=== PATIENT | female | born 1960 | race Caucasian/White ===

== ENCOUNTER 2016-08-24 07:27 | Emergency (ER) | payer OTHER ==
[2016-08-24 07:37] VITALS: BP 136/69; PULSE 65; RESP 18; TEMP 97
--- NOTE | 2016-08-24 07:55 | ED ---
Lower Extremity Injury HPI - General Chief Complaint: Extremity Injury, Lower Stated Complaint: Fall-Knee Pain Time Seen by Provider: 08/24/16 07:40 Source: patient, RN notes reviewed Mode of arrival: ambulatory Limitations: no limitations - History of Present Illness Initial Comments: This is a 56-year-old female who states he tripped over a mat at work yesterday and landed on concrete floor with her left knee she complains of some distal left knee pain anteriorly. No major lateral pain she is able walk on it does have some pain she states the pain is about 4/10 in severity no other injuries reported no head neck back injury no other extremity injury. She denies any prior injury to her left knee. MD Complaint: knee injury - Related Data Home Medications Medication Instructions Recorded Confirmed No Known Home Medications [No 08/24/16 08/24/16 Known Home Medications] Previous Rx's Medication Instructions Recorded Ibuprofen [Motrin] 800 mg PO Q6HR PRN #20 tab 08/24/16 Allergies Allergy/AdvReac Type Severity Reaction Status Date / Time No Known Allergies Allergy Verified 08/24/16 07:32 Review of Systems ROS Statement: Those systems with pertinent positive or pertinent negative responses have been documented in the HPI. ROS Other: All systems not noted in ROS Statement are negative. Past Medical History Past Medical History: No Reported History History of Any Multi-Drug Resistant Organisms: None Reported Past Surgical History: Section Past Psychological History: No Psychological Hx Reported Smoking Status: Never smoker Past Alcohol Use History: None Reported Past Drug Use History: None Reported General Exam - General Exam Comments Initial Comments: This is a well-developed well-nourished awake alert oriented 3 female Limitations: no limitations General appearance: alert, in no apparent distress Head exam: Present: atraumatic, normocephalic, normal inspection Eye exam: Present: normal appearance Neck exam: Present: normal inspection. Absent: tenderness, meningismus, lymphadenopathy Respiratory exam: Absent: chest wall tenderness Cardiovascular Exam: Present: regular rate External exam: Present: swelling Extremities exam: Present: full ROM, tenderness, normal capillary refill. Absent: pedal edema (Tenderness palpation over the distal left patella no medial or lateral tenderness no step-off or crepitation no obvious wound a small point of erythema seen to the same area no evidence of any abrasion however no overt tenderness on varus or valgus stress.) Back exam: Present: normal inspection, full ROM. Absent: tenderness Neurological exam: Present: alert, oriented X3, CN II-XII intact Psychiatric exam: Present: normal affect, normal mood Skin exam: Present: warm, dry, intact Course Vital Signs 08/24/16 07:32 Temperature 97 F L Pulse Rate 65 Respiratory 18 Rate Blood Pressure 136/69 O2 Sat by Pulse 100 Oximetry Medical Decision Making - Medical Decision Making I did discuss findings with the patient and her patient be discharged she'll be placed on ice for the next 24-48 hours elevation as needed and anti- inflammatories - Radiology Data Radiology results: report reviewed (I did review the imaging and report is pending at this time no obvious acute findings.), image reviewed Disposition Clinical Impression: Contusion of left knee, Fall Disposition: HOME SELF-CARE Condition: Good Instructions: Knee Pain (ED), Contusion in Adults (ED) Prescriptions: Ibuprofen [Motrin] 800 mg PO Q6HR PRN #20 tab PRN Reason: Pain Referrals: Nonstaff,Physician [Primary Care Provider] - 1-2 days
--- NOTE | 2016-08-24 08:32 | XR ---
EXAMINATION TYPE: XR knee 4V LT DATE OF EXAM: 08/24/2016 8:10 AM COMPARISON: NONE HISTORY: 56-year-old female with fall yesterday and pain TECHNIQUE: 4 views FINDINGS: There is suggestion of a small knee joint effusion. Some anterior soft tissue swelling is also demons trated. The patella remains appropriately situated along the trochlear groove. No acute fracture, sub luxation, or dislocation is seen. IMPRESSION: 1. No acute osseous abnormality seen. 2. Some mild anterior soft tissue swelling. 3. Nonspecific small knee joint effusion may be reactive. If concern for internal derangement, MRI ca n further evaluate.
== END 2016-08-24 08:30 | disposition home or self-care (01) ==
LOC: EC 07:27
DX: S80.02XA Contusion of left knee, initial encounter (principal); W01.0XXA Fall on same level from slipping, tripping and stumbling without subsequent striking against object, initial encounter; Y93.89 Activity, other specified; Y92.69 Other specified industrial and construction area as the place of occurrence of the external cause
CPT/HCPCS: 99283

== ENCOUNTER 2017-11-22 16:58 | Emergency (ER) | payer OTHER ==
[2017-11-22 17:19] VITALS: BP 118/78; PULSE 85; RESP 18; TEMP 98.3
--- NOTE | 2017-11-22 18:03 | ED ---
ENT HPI - General Chief complaint: ENT Stated complaint: Ear pain Time Seen by Provider: 11/22/17 17:33 Source: patient, RN notes reviewed Mode of arrival: ambulatory Limitations: no limitations - History of Present Illness Initial comments: This is a 57-year-old female who presents to the emergency department with chief complaint of left ear pain. Patient states that [place] with her [place] this past Tuesday. She states that she may have gotten water in it and has been experiencing pain ever since. She reports ear fullness. Denies any hearing changes. Denies fevers or chills, cough or runny nose, abdominal pain, nausea or vomiting. - Related Data Previous Rx's Medication Instructions Recorded Ibuprofen [Motrin] 800 mg PO Q6HR PRN #20 tab 08/24/16 Amoxicillin 875 mg PO Q8HR #30 tablet 11/22/17 Allergies Allergy/AdvReac Type Severity Reaction Status Date / Time No Known Allergies Allergy Verified 11/22/17 17:19 Review of Systems ROS Statement: Those systems with pertinent positive or pertinent negative responses have been documented in the HPI. ROS Other: All systems not noted in ROS Statement are negative. Past Medical History Past Medical History: No Reported History History of Any Multi-Drug Resistant Organisms: None Reported Past Surgical History: Section Past Psychological History: No Psychological Hx Reported Smoking Status: Never smoker Past Alcohol Use History: None Reported Past Drug Use History: None Reported General Exam - General Exam Comments Initial Comments: General: Awake and alert, well-developed; in no apparent distress. HEENT: Head atraumatic, normocephalic. Pupils are equal, round and reactive to light. Extraocular movements intact. Oropharynx moist without erythema or exudate. Cerumen impaction left ear. After irrigation, TM is visualized. It is erythematous and bulging. Mild erythema and edema of the canal with no exudates-likely due to cerumen impaction and irrigation. No tragal or pinna retraction tenderness. Neck: Supple. Normal ROM. Cardiovascular: Regular rate and rhythm. No murmurs, rubs or gallops. Chest symmetrical. Respiratory: Lungs clear to auscultation bilaterally. No wheezes, rales or rhonchi. Normal respiratory effort with no use of accessory muscles. Musculoskeletal: Normal ROM, no tenderness bilateral upper and lower extremities. Ambulating normally. Skin: [place], warm and dry without rashes or lesions. Neurological: Alert and oriented x3. CN II-XII grossly intact. Speech is fluent and answers are appropriate. No focal neuro deficits. Psychiatric: Normal mood and affect. No overt signs of depression or anxiety noted. Limitations: no limitations Course Vital Signs 11/22/17 17:17 Temperature 98.3 F Pulse Rate 85 Respiratory 18 Rate Blood Pressure 118/78 O2 Sat by Pulse 98 Oximetry Medical Decision Making - Medical Decision Making This is a 57-year-old female who presents to the emergency department with chief complaint of left ear pain. Patient does have a cerumen impaction. Ear was irrigated by the nurse and a large amount of cerumen was irrigated and removed from the ear. On further examination, left TM is bulging and erythematous. Patient will be started on an oral antibiotic. The canal is slightly edematous and erythematous without exudates. Likely due to cerumen impaction and subsequent irrigation. Patient's vital signs are stable and she is in no acute distress. She will be discharged home at this time. She is in agreement with plan and voices understanding. All questions were answered. Disposition Clinical Impression: Otitis media, Cerumen impaction Disposition: HOME SELF-CARE Condition: Good Instructions: Otitis Media (ED), Cerumen Impaction (ED) Additional Instructions: Please take medications as prescribed. Please follow up with primary care provider within 1-2 days. Return to emergency department if symptoms should worsen or any concerns arise. Prescriptions: Amoxicillin 875 mg PO Q8HR #30 tablet Is patient prescribed a controlled substance at d/c from ED?: No Referrals: Beronica Carroll MD [Primary Care Provider] - 1-2 days Time of Disposition: 18:30
== END 2017-11-22 18:37 | disposition home or self-care (01) ==
LOC: EC 16:58
DX: H66.92 Otitis media, unspecified, left ear (principal); H61.22 Impacted cerumen, left ear
CPT/HCPCS: 69209; 99282

== ENCOUNTER 2017-11-25 16:07 | Emergency (ER) | payer OTHER ==
[2017-11-25 16:24] VITALS: BP 119/74; PULSE 77; RESP 18; TEMP 98.1
--- NOTE | 2017-11-25 16:45 | ED ---
ENT HPI - General Chief complaint: ENT Stated complaint: ear problems-revisit Time Seen by Provider: 11/25/17 16:31 Source: patient Mode of arrival: ambulatory Limitations: no limitations - History of Present Illness Initial comments: 57yo with cc of my left ear is still draining x 3 days. Pt was seen here on 11/22 where cerumen was removed, pt was given amoxicillin for erythematous, bulging TM most likely acute otitis media. Pt states that she has had some light yellow drainage since then. She came to the ER on Tuesday and was not seen but was told by a nurse that draining is common after irrigation and to place cotton ball. Pt did not want to be seen at this time. Pt returned today because it is still draining. Denies ear pain, puritius, ear fullness, fever, chills, hearing loss, or pain of the posterior ear. Pt just wanted to make sure the drainage was ok. Remainder ROS (-). - Related Data Previous Rx's Medication Instructions Recorded Ibuprofen [Motrin] 800 mg PO Q6HR PRN #20 tab 08/24/16 Amoxicillin 875 mg PO Q8HR #30 tablet 11/22/17 Allergies Allergy/AdvReac Type Severity Reaction Status Date / Time No Known Allergies Allergy Verified 11/25/17 16:24 Review of Systems ROS Statement: Those systems with pertinent positive or pertinent negative responses have been documented in the HPI. ROS Other: All systems not noted in ROS Statement are negative. Constitutional: Denies: fever, chills Eyes: Denies: eye pain, vision change ENT: Denies: ear pain, hearing loss Respiratory: Denies: cough, dyspnea Gastrointestinal: Denies: abdominal pain, nausea, vomiting Genitourinary: Denies: urgency, dysuria Musculoskeletal: Denies: back pain Skin: Denies: rash, lesions Neurological: Denies: headache, numbness, paresthesias, confusion, abnormal gait Past Medical History Past Medical History: No Reported History History of Any Multi-Drug Resistant Organisms: None Reported Past Surgical History: Section Past Psychological History: No Psychological Hx Reported Smoking Status: Never smoker Past Alcohol Use History: None Reported Past Drug Use History: None Reported General Exam - General Exam Comments Initial Comments: General: The patient is awake and alert, in no distress, and does not appear acutely ill. Eye: Pupils are equal, round and reactive to light, extra-ocular movements are intact. No nystagmus. There is normal conjunctiva bilaterally. No signs of icterus. Ears, nose, mouth and throat: There are moist mucous membranes and no oral lesions. No tenderness to palpation of tragus or pulling of auricle b/l. Erythematous left TM, with small performation with effusion. EAC non erythematous or edematous. No tenderness over the mastoid. No evidence of cholesteatoma. Hearing equal b/l to finger rub. Neck: The neck is supple, there is no tenderness or JVD. No anterior cervical lymphadenopathy. Cardiovascular: There is a regular rate and rhythm. No murmur, rub or gallop is appreciated. Respiratory: Lungs are clear to auscultation, respirations are non-labored, breath sounds are equal. No wheezes, stridor, rales, or rhonchi. Gastrointestinal: [Soft, non-distended, non-tender abdomen without masses or organomegaly noted. There is no rebound or guarding present. No CVA tenderness. Bowel sounds are unremarkable.] Musculoskeletal: Normal ROM, no tenderness. Strength 5/5. Sensation intact. Pulses equal bilaterally 2+. Neurological: A&O x 3. CN II-XII intact, There are no obvious motor or sensory deficits. Coordination appears grossly intact. Speech is normal. Skin: Skin is warm and dry and no rashes or lesions are noted. Psychiatric: Cooperative, appropriate mood & affect, normal judgment. Limitations: no limitations Course Vital Signs 11/25/17 16:21 Temperature 98.1 F Pulse Rate 77 Respiratory 18 Rate Blood Pressure 119/74 O2 Sat by Pulse 99 Oximetry Medical Decision Making - Medical Decision Making Pt presenting for cc of continued left ear drainage. Pt on amoxicillin currently prescribed 11/22. Examination is significant for erythematous TM with perforation and effusion. No evidence of mastoiditis or cholesteatoma at this time. Hearing intact. Pt afebrile and denies ear pain. Case discussed with Dr. Keita in detail at this time we feel pt is stable for d/c and that the drainage she is experiencing is due to OM with effusion. Pt was instructed to avoid bathing, swimming or submerging ear in water, continue amoxicillin as directed, and follow-up with PCP in 1-2 days. She stated she understood plan and denied questions. Pt discharged in stable condition. Disposition Clinical Impression: Otitis media Disposition: HOME SELF-CARE Condition: Good Instructions: Ruptured Eardrum (ED), Otitis Media (ED) Additional Instructions: Please use continue previously prescribed medication as discussed. Please follow-up with family doctor in the next 2 days. Please return to emergency room if the symptoms increase or worsen or for any other concerns. AVOID WATER, SWIMMING, or SUBMERGING EAR UNDERWATER Is patient prescribed a controlled substance at d/c from ED?: No Referrals: None,Stated [Primary Care Provider] - 1-2 days Time of Disposition: 17:04
== END 2017-11-25 17:13 | disposition home or self-care (01) ==
LOC: EC 16:07
DX: H66.92 Otitis media, unspecified, left ear (principal)
CPT/HCPCS: 99282

== ENCOUNTER 2018-02-20 22:04 | Emergency (ER) | payer OTHER ==
[2018-02-20] MEDS ORDERED: SODIUM CHLORIDE 0.9% 500 ML 500 ML IV STA (22:55)
[2018-02-20] MEDS ORDERED: MORPHINE SULFATE 2 MG/ML SYRINGE IVP STA (22:55)
[2018-02-20] MEDS ORDERED: ONDANSETRON 4 MG/2 ML VIAL IVP STA (22:55)
[2018-02-20 23:31] LABS: Basophils % (A) 0 %; Eosinophils # (A) 0.1 k/uL (0-0.7); Eosinophils % (A) 1 %; HCT 43.7 % (34.0-46.0); HGB 14.4 gm/dL (11.4-16.0); Lymphocytes # (A) 1.6 k/uL (1.0-4.8); Lymphocytes % (A) 18 %; MCH 28.1 pg (25.0-35.0); MCHC 32.9 g/dL (31.0-37.0); MCV 85.4 fL (80.0-100.0); Monocytes # (A) 0.4 k/uL (0-1.0); Monocytes % (A) 4 %; Neutrophils # (A) 6.5 k/uL (1.3-7.7); Neutrophils % (A) 74 %; Platelet Count 212 k/uL (150-450); RBC 5.12 m/uL (3.80-5.40); RDW 14.1 % (11.5-15.5); WBC 8.8 k/uL (3.8-10.6)
[2018-02-20 23:40] LABS: Albumin 2.7 g/dL (3.5-5.0); Calcium 8.7 mg/dL (8.4-10.2); Total Bilirubin 0.3 mg/dL (0.2-1.3)
[2018-02-20 23:41] LABS: Appearance,Urine Cloudy (Clear); Bacteria,Urine Rare /hpf; Bilirubin,Urine Negative (Negative); Blood,Urine Negative (Negative); Color,Urine Yellow; Glucose,Urine (UA) Negative (Negative); Hyaline Casts,Urine 4 /lpf (0-2); Ketones,Urine Negative (Negative); Leukocyte Esterase,Urine Large (Negative); Mucus,Urine Moderate /hpf; Nitrite,Urine Negative (Negative); PH, Urine 5.5 (5.0-8.0); Protein,Urine Trace (Negative); RBC,Urine 21 /hpf (0-5); Specific Gravity,Urine 1.025 (1.001-1.035); Squamous Epithelial Cell,Urine 10 /hpf (0-4); WBC,Urine 55 /hpf (0-5)
--- NOTE | 2018-02-20 23:42 | XR ---
EXAMINATION TYPE: XR KUB DATE OF EXAM: 02/20/2018 COMPARISON: NONE HISTORY: Abdominal pain TECHNIQUE: 2 views upright FINDINGS: Bowel gas pattern is normal. There is no sign of intestinal obstruction or pneumoperitoneum . Fecal pattern is normal. Lung bases show small pleural fluid on the right side. There are no pathol ogic calcifications over the kidneys. IMPRESSION: Small right pleural effusion. Nonacute abdomen.
--- NOTE | 2018-02-20 23:44 | XR ---
EXAMINATION TYPE: XR chest 2V DATE OF EXAM: 02/20/2018 COMPARISON: 09/04/2010 HISTORY: Abdominal pain TECHNIQUE: Frontal and lateral views of the chest are obtained. FINDINGS: There is some blunting of right costophrenic angle. Left lung is clear. Heart and mediasti num are normal. There is no heart failure. Bony thorax is intact. IMPRESSION: New pleural fluid and pleural reaction at the lateral right lung base compared to old exam. Normal he art.
[2018-02-20 23:57] LABS: Creatine Kinase 113 U/L (30-135)
--- NOTE | 2018-02-21 00:05 | ED ---
General Adult HPI - General Chief complaint: Abdominal Pain Stated complaint: abdominal pain Time Seen by Provider: 02/20/18 22:46 Source: patient Mode of arrival: ambulatory Limitations: no limitations - History of Present Illness Initial comments: 57-year-old female patient presents to the emergency department today for evaluation of pain to the left upper quadrant and left lower chest. Patient states that the pain is a sharp stabbing pain and increases whenever she takes a deep breath. Patient states that the pain started this morning and has been present with each breath. She denies any cough, hemoptysis, or shortness of breath. She denies any fevers or chills. She denies smoking, recent travel, pain in her calves, or redness to her calves. She states that she has been nauseated and did vomit one time. She denies any back pain, constipation, diarrhea, hematuria, dysuria, urinary frequency, urinary urgency. Patient denies any recent rash, shortness breath, diarrhea, constipation, numbness, tingling, dizziness, weakness, headache, visual changes, or any other complaints. - Related Data Previous Rx's Medication Instructions Recorded Ibuprofen [Motrin] 600 mg PO Q8HR PRN #30 tab 02/21/18 Nitrofurantoin Monohyd/M-Cryst 100 mg PO Q12HR #14 cap 02/21/18 [Macrobid] Allergies Allergy/AdvReac Type Severity Reaction Status Date / Time No Known Allergies Allergy Verified 02/20/18 23:16 Review of Systems ROS Statement: Those systems with pertinent positive or pertinent negative responses have been documented in the HPI. ROS Other: All systems not noted in ROS Statement are negative. Past Medical History Past Medical History: No Reported History History of Any Multi-Drug Resistant Organisms: None Reported Past Surgical History: Section Past Psychological History: No Psychological Hx Reported Smoking Status: Never smoker Past Alcohol Use History: None Reported Past Drug Use History: None Reported General Exam Limitations: no limitations General appearance: alert, in no apparent distress, other (This is a well- developed, well-nourished adult female patient in no acute distress. Vital signs upon presentation are temperature 97.6F, pulse 96, respirations 18, blood pressure 124/88, pulse ox 93% on room air.) ENT exam: Present: normal exam, normal oropharynx, mucous membranes moist Respiratory exam: Present: normal lung sounds bilaterally. Absent: respiratory distress, wheezes, rales, rhonchi, stridor Cardiovascular Exam: Present: regular rate, normal rhythm, normal heart sounds. Absent: systolic murmur, diastolic murmur, rubs, gallop, clicks GI/Abdominal exam: Present: soft, tenderness (Left upper quadrant tenderness), normal bowel sounds. Absent: distended, guarding, rebound, rigid Neurological exam: Present: alert, oriented X3, CN II-XII intact Psychiatric exam: Present: normal affect, normal mood Skin exam: Present: warm, dry, intact, normal color. Absent: rash Course Vital Signs 02/20/18 02/21/18 02/21/18 22:16 01:03 02:51 Temperature 97.6 F 98.3 F Pulse Rate 96 63 77 Respiratory 18 17 16 Rate Blood Pressure 124/88 121/74 121/83 O2 Sat by Pulse 93 L 96 96 Oximetry EKG Findings - EKG Comments: EKG Findings:: EKG obtained at 2313 shows normal sinus rhythm with a ventricular rate of 82, WI interval 174, QRS duration 72, QT 392, QTc 457. No evidence of ST elevation or depression. Medical Decision Making - Medical Decision Making 57-year-old female patient presents to the emergency department today for evaluation of left upper quadrant/left lower chest pain. Patient describes the pain is sharp stabbing pain especially when taking a deep breath. Physical examination was unremarkable, patient had soft nontender abdomen. Lungs are clear to auscultation with good air movement. Vital signs initially revealed a pulse ox of 93% on room air. Labs reviewed and are unremarkable. Troponin was negative. Chest x-ray showed small pleural effusion on the right side. D- dimer was negative however with the patient's symptoms and low oxygen level we did perform CT angio of the chest which showed evidence of pleural thickening at the left upper posterior lobe. No evidence of PE. O2 Saturation did improve to 96% on room air while in the department. I did discuss findings and results with the patient. Symptoms are consistent with pleurisy. She'll be given a course of anti-inflammatory medication. She is informed of all findings on computed tomography scan instructed to follow-up with her primary care physician for further evaluation of enlarged lymph nodes and pleural thickening. She is instructed to follow-up with her primary care physician for recheck in one to two days. Return parameters were discussed in detail. She verbalizes understanding and agrees with this plan - Lab Data Result diagrams: 02/20/18 23:10 02/20/18 23:10 Lab Results 02/20/18 02/20/18 02/20/18 Range/Units 22:50 23:10 23:10 WBC (3.8-10.6) k/uL RBC (3.80-5.40) m/uL Hgb (11.4-16.0) gm/dL Hct (34.0-46.0) % MCV (80.0-100.0) fL MCH (25.0-35.0) pg MCHC (31.0-37.0) g/dL RDW (11.5-15.5) % Plt Count (150-450) k/uL Neutrophils % % Lymphocytes % % Monocytes % % Eosinophils % % Basophils % % Neutrophils # (1.3-7.7) k/uL Lymphocytes # (1.0-4.8) k/uL Monocytes # (0-1.0) k/uL Eosinophils # (0-0.7) k/uL Basophils # (0-0.2) k/uL PT (9.0-12.0) sec INR (<1.2) APTT (22.0-30.0) sec D-Dimer (<0.60) mg/L FEU Sodium 135 L (137-145) mmol/L Potassium 4.0 (3.5-5.1) mmol/L Chloride 107 (98-107) mmol/L Carbon Dioxide 21 L (22-30) mmol/L Anion Gap 7 mmol/L BUN 15 (7-17) mg/dL Creatinine 0.98 (0.52-1.04) mg/dL Est GFR (CKD-EPI)AfAm 75 (>60 ml/min/1.73 sqM) Est GFR (CKD-EPI)NonAf 65 (>60 ml/min/1.73 sqM) Glucose 109 H (74-99) mg/dL Plasma Lactic Acid [place] (0.7-2.0) mmol/L Calcium 8.7 (8.4-10.2) mg/dL Total Bilirubin 0.3 (0.2-1.3) mg/dL AST 28 (14-36) U/L ALT 31 (9-52) U/L Alkaline Phosphatase 66 (38-126) U/L Total Creatine Kinase 113 (30-135) U/L CK-MB (CK-2) 1.1 (0.0-2.4) ng/mL CK-MB (CK-2) Rel Index 1.0 Troponin I <0.012 (0.000-0.034) ng/mL Total Protein 5.0 L (6.3-8.2) g/dL Albumin 2.7 L (3.5-5.0) g/dL Amylase 67 (30-110) U/L Lipase 151 (23-300) U/L Urine Color Yellow Urine Appearance Cloudy H (Clear) Urine pH 5.5 (5.0-8.0) Ur Specific Thor 1.025 (1.001-1.035) Urine Protein Trace H (Negative) Urine Glucose (UA) Negative (Negative) Urine Ketones Negative (Negative) Urine Blood Negative (Negative) Urine Nitrite Negative (Negative) Urine Bilirubin Negative (Negative) Urine Urobilinogen 2.0 (<2.0) mg/dL Ur Leukocyte Esterase Large H (Negative) Urine RBC 21 H (0-5) /hpf Urine WBC 55 H (0-5) /hpf Ur Squamous Epith Cells 10 H (0-4) /hpf Urine Bacteria Rare H (None) /hpf Hyaline Casts 4 H (0-2) /lpf Urine Mucus Moderate H (None) /hpf 02/20/18 02/20/18 02/20/18 Range/Units 23:10 23:10 23:10 WBC 8.8 (3.8-10.6) k/uL RBC 5.12 (3.80-5.40) m/uL Hgb 14.4 (11.4-16.0) gm/dL Hct 43.7 (34.0-46.0) % MCV 85.4 (80.0-100.0) fL MCH 28.1 (25.0-35.0) pg MCHC 32.9 (31.0-37.0) g/dL RDW 14.1 (11.5-15.5) % Plt Count 212 (150-450) k/uL Neutrophils % 74 % Lymphocytes % 18 % Monocytes % 4 % Eosinophils % 1 % Basophils % 0 % Neutrophils # 6.5 (1.3-7.7) k/uL Lymphocytes # 1.6 (1.0-4.8) k/uL Monocytes # 0.4 (0-1.0) k/uL Eosinophils # 0.1 (0-0.7) k/uL Basophils # 0.0 (0-0.2) k/uL PT 9.9 (9.0-12.0) sec INR 1.0 (<1.2) APTT 21.3 L (22.0-30.0) sec D-Dimer 0.54 (<0.60) mg/L FEU Sodium (137-145) mmol/L Potassium (3.5-5.1) mmol/L Chloride (98-107) mmol/L Carbon Dioxide (22-30) mmol/L Anion Gap mmol/L BUN (7-17) mg/dL Creatinine (0.52-1.04) mg/dL Est GFR (CKD-EPI)AfAm (>60 ml/min/1.73 sqM) Est GFR (CKD-EPI)NonAf (>60 ml/min/1.73 sqM) Glucose (74-99) mg/dL Plasma Lactic Acid [place] 0.7 (0.7-2.0) mmol/L Calcium (8.4-10.2) mg/dL Total Bilirubin (0.2-1.3) mg/dL AST (14-36) U/L ALT (9-52) U/L Alkaline Phosphatase (38-126) U/L Total Creatine Kinase (30-135) U/L CK-MB (CK-2) (0.0-2.4) ng/mL CK-MB (CK-2) Rel Index Troponin I (0.000-0.034) ng/mL Total Protein (6.3-8.2) g/dL Albumin (3.5-5.0) g/dL Amylase (30-110) U/L Lipase (23-300) U/L Urine Color Urine Appearance (Clear) Urine pH (5.0-8.0) Ur Specific Thor (1.001-1.035) Urine Protein (Negative) Urine Glucose (UA) (Negative) Urine Ketones (Negative) Urine Blood (Negative) Urine Nitrite (Negative) Urine Bilirubin (Negative) Urine Urobilinogen (<2.0) mg/dL Ur Leukocyte Esterase (Negative) Urine RBC (0-5) /hpf Urine WBC (0-5) /hpf Ur Squamous Epith Cells (0-4) /hpf Urine Bacteria (None) /hpf Hyaline Casts (0-2) /lpf Urine Mucus (None) /hpf - Radiology Data Radiology results: report reviewed, image reviewed CT chest angiography for PE was obtained. Report was reviewed in its entirety. Impression by Dr. Davidson shows hiatal hernia, no evidence of pulmonary embolism, minimal pleural thickening all left-sided uncertain significance. To operate views of the abdomen were obtained. Bowel gas pattern is normal. There is no sign of intestinal obstruction or pneumoperitoneum. Fecal pattern is normal. Lung bases show small pleural fluid on the right side. There are no pathologic calcifications over the kidneys. Impression by Dr. Davidson shows small right pleural effusion. Nonacute abdomen. Two-view x-ray of the chest is obtained. There is some blunting of the right costophrenic angle. Left lung is clear. Heart and mediastinum are normal. There is no heart failure. Bony thorax is intact. Impression by Dr. Davidson shows no pleural fluid and pleural reaction at the lateral right lung base compared to old exam. Normal heart. Disposition Clinical Impression: Pleurisy, Urinary tract infection Disposition: HOME SELF-CARE Condition: Good Instructions: Pleurisy (ED), Urinary Tract Infection in Women (ED) Additional Instructions: Complete antibiotic prescription in full. Follow up with your primary care physician for further evaluation of lung changes on your Cat Scan. Take medication as directed. Complete antibiotic prescription in full. Return immediately for any new, worsening, or concerning symptoms. Prescriptions: Ibuprofen [Motrin] 600 mg PO Q8HR PRN #30 tab PRN Reason: Pain Nitrofurantoin Monohyd/M-Cryst [Macrobid] 100 mg PO Q12HR #14 cap Is patient prescribed a controlled substance at d/c from ED?: No Referrals: Beronica Carroll MD [Primary Care Provider] - 1-2 days Time of Disposition: 02:34
[2018-02-21 00:09] LABS: Creatine Kinase MB 1.1 ng/mL (0.0-2.4); Troponin I <0.012 ng/mL (0.000-0.034)
[2018-02-21 00:28] LABS: D-Dimer 0.54 mg/L FEU (<0.60); Prothrombin Time 9.9 sec (9.0-12.0)
[2018-02-21 00:39] LABS: Partial Thromboplastin Time 21.3 sec (22.0-30.0)
--- NOTE | 2018-02-21 01:53 | CT ---
EXAMINATION TYPE: CT chest angio for PE DATE OF EXAM: 02/21/2018 COMPARISON: None HISTORY: epigastric pain CT DLP: 203.9 mGycm Automated exposure control for dose reduction was used. CONTRAST: CT Chest for pulmonary embolism performed with with IV Contrast, patient injected with 60 mL of Isovu e 370. FINDINGS: There are 3-D post processed images. There is 1.5 cm area of minimal pleural thickening in the left u pper lobe posteriorly. There is no evidence of a pulmonary mass. There is subsegmental atelectasis at the lung bases. There is small hiatal hernia. There are a few peritracheal and anterior mediastinal lymph nodes measure up to 1 cm. These are nonspecific. Thoracic aorta shows no aneurysm or dissection. There is normal contrast opacification of the pulmona ry arteries. I see no filling defect. There are no hilar masses. Heart size is normal. There is no pe ricardial effusion. There is no pleural effusion. Upper abdominal soft tissues are unremarkable. IMPRESSION: Hiatal hernia. No evidence of pulmonary embolism. Minimal pleural thickening on the left side of unce rtain significance.
[2018-02-21] MEDS ORDERED: KETOROLAC 30 MG/ML 1 ML VIAL IVP STA (02:30)
[2018-02-21 02:53] VITALS: BP 121/83; PULSE 77; RESP 16; TEMP 98.3
== END 2018-02-21 02:47 | disposition home or self-care (01) ==
LOC: EC 22:04
DX: N39.0 Urinary tract infection, site not specified (principal); J90 Pleural effusion, not elsewhere classified
CPT/HCPCS: 99285; 96374; 96375; 36415; 93005; 85379; 80053; 82150; 82550; 82553; 83605; 83690; 84484; 85025; 85610; 85730; 81001; 87086; 71046; 74018; 71275; J1885; J2270; Q9967

== ENCOUNTER 2018-08-11 10:46 | Emergency (ER) | payer OTHER ==
[2018-08-11] MEDS ORDERED: IPRATROPIUM 0.5 MG/2.5 ML NEBU INHALATION STA (11:26)
[2018-08-11] MEDS ORDERED: methylPREDNISolone SOD SUCCI 125 MG/2 ML VIAL IV STA (11:26)
[2018-08-11] MEDS ORDERED: ALBUTEROL NEBULIZED 2.5 MG/3 ML INHALATION STA (11:26)
--- NOTE | 2018-08-11 11:30 | ED ---
General Adult HPI - General Chief complaint: Upper Respiratory Infection Stated complaint: bronchitis Time Seen by Provider: 08/11/18 11:22 Source: patient, RN notes reviewed Mode of arrival: ambulatory Limitations: no limitations - History of Present Illness Initial comments: 58-year-old female presenting with 5 days of cough and mild dyspnea. Patient was seen at an outside hospital, given steroids and albuterol. She states her symptoms have not improved over the past 5 days. Denies fever. Denies URI symptoms. Denies chest pain. No history of CAD, no history DVT or PE. Denies history of COPD. She is a nonsmoker. Cough is wet however patient has been unable to produce significant sputum. - Related Data Home Medications Medication Instructions Recorded Confirmed Albuterol Inhaler [Ventolin Hfa 1 - 2 puff INHALATION RT-Q6H PRN 08/11/18 08/11/18 Inhaler] Previous Rx's Medication Instructions Recorded Azithromycin [Zithromax Z-pack] 0 mg PO DIRECTED #6 tab 08/11/18 methylPREDNISolone Dose Pack 4 mg PO DIRECTED #21 package 08/11/18 [Medrol Dose Pack] Allergies Allergy/AdvReac Type Severity Reaction Status Date / Time No Known Allergies Allergy Verified 08/11/18 11:01 Review of Systems ROS Statement: Those systems with pertinent positive or pertinent negative responses have been documented in the HPI. ROS Other: All systems not noted in ROS Statement are negative. Past Medical History Past Medical History: No Reported History History of Any Multi-Drug Resistant Organisms: None Reported Past Surgical History: Section Past Psychological History: No Psychological Hx Reported Smoking Status: Never smoker Past Alcohol Use History: None Reported Past Drug Use History: None Reported General Exam Limitations: no limitations General appearance: alert, in no apparent distress Head exam: Present: atraumatic, normocephalic Eye exam: Present: normal appearance, PERRL ENT exam: Present: normal exam Neck exam: Present: normal inspection Respiratory exam: Present: wheezes, rhonchi (Bilateral, worse on the right). Absent: respiratory distress Cardiovascular Exam: Present: normal rhythm, tachycardia GI/Abdominal exam: Present: soft. Absent: distended, tenderness Extremities exam: Present: normal inspection, normal capillary refill. Absent: pedal edema, calf tenderness Neurological exam: Present: alert, oriented X3, CN II-XII intact. Absent: motor sensory deficit Psychiatric exam: Present: normal affect, normal mood Skin exam: Present: warm, dry, intact. Absent: cyanosis, diaphoretic Course Vital Signs 08/11/18 08/11/18 08/11/18 10:52 11:36 12:00 Temperature 97.7 F Pulse Rate 109 H 108 H 108 H Respiratory 20 Rate Blood Pressure 129/83 O2 Sat by Pulse 97 Oximetry Medical Decision Making - Medical Decision Making 58-year-old female presenting with cough. Workup in the emergency department reveals mild leukocytosis 10.8, stable hemoglobin, potassium 3.2 which is replaced. Lactic acid 2.2 treated with IV hydration. Troponin and BNP negative influenza negative. Chest x-ray negative for focal pneumonia. Patient is presenting for second visit. She is offered observation for treatment of reactive airway disease and failed outpatient treatment. She declines. She prefers outpatient follow-up. Will be prescribed antibiotics and steroids for bronchitis. - Lab Data Result diagrams: 08/11/18 11:37 08/11/18 11:37 Lab Results 08/11/18 08/11/18 08/11/18 Range/Units 11:37 11:37 11:37 WBC 10.8 H (3.8-10.6) k/uL RBC 5.32 (3.80-5.40) m/uL Hgb 14.8 (11.4-16.0) gm/dL Hct 46.6 H (34.0-46.0) % MCV 87.6 (80.0-100.0) fL MCH 27.8 (25.0-35.0) pg MCHC 31.8 (31.0-37.0) g/dL RDW 15.1 (11.5-15.5) % Plt Count 261 (150-450) k/uL Neutrophils % 71 % Lymphocytes % 21 % Monocytes % 5 % Eosinophils % 1 % Basophils % 1 % Neutrophils # 7.7 (1.3-7.7) k/uL Lymphocytes # 2.3 (1.0-4.8) k/uL Monocytes # 0.5 (0-1.0) k/uL Eosinophils # 0.1 (0-0.7) k/uL Basophils # 0.1 (0-0.2) k/uL PT 9.6 (9.0-12.0) sec INR 0.9 (<1.2) APTT 19.5 L (22.0-30.0) sec Sodium 140 (137-145) mmol/L Potassium 3.2 L (3.5-5.1) mmol/L Chloride 105 (98-107) mmol/L Carbon Dioxide 29 (22-30) mmol/L Anion Gap 6 mmol/L BUN 17 (7-17) mg/dL Creatinine 0.99 (0.52-1.04) mg/dL Est GFR (CKD-EPI)AfAm 73 (>60 ml/min/1.73 sqM) Est GFR (CKD-EPI)NonAf 64 (>60 ml/min/1.73 sqM) Glucose 112 H (74-99) mg/dL Plasma Lactic Acid [place] (0.7-2.0) mmol/L Calcium 9.9 (8.4-10.2) mg/dL Magnesium 2.0 (1.6-2.3) mg/dL Total Bilirubin 0.3 (0.2-1.3) mg/dL AST 22 (14-36) U/L ALT 36 (9-52) U/L Alkaline Phosphatase 80 (38-126) U/L Troponin I (0.000-0.034) ng/mL NT-Pro-B Natriuret Pep pg/mL Total Protein 6.1 L (6.3-8.2) g/dL Albumin 3.7 (3.5-5.0) g/dL Influenza Type A RNA (Not Detectd) Influenza Type B (PCR) (Not Detectd) 08/11/18 08/11/18 08/11/18 Range/Units 11:37 11:37 11:37 WBC (3.8-10.6) k/uL RBC (3.80-5.40) m/uL Hgb (11.4-16.0) gm/dL Hct (34.0-46.0) % MCV (80.0-100.0) fL MCH (25.0-35.0) pg MCHC (31.0-37.0) g/dL RDW (11.5-15.5) % Plt Count (150-450) k/uL Neutrophils % % Lymphocytes % % Monocytes % % Eosinophils % % Basophils % % Neutrophils # (1.3-7.7) k/uL Lymphocytes # (1.0-4.8) k/uL Monocytes # (0-1.0) k/uL Eosinophils # (0-0.7) k/uL Basophils # (0-0.2) k/uL PT (9.0-12.0) sec INR (<1.2) APTT (22.0-30.0) sec Sodium (137-145) mmol/L Potassium (3.5-5.1) mmol/L Chloride (98-107) mmol/L Carbon Dioxide (22-30) mmol/L Anion Gap mmol/L BUN (7-17) mg/dL Creatinine (0.52-1.04) mg/dL Est GFR (CKD-EPI)AfAm (>60 ml/min/1.73 sqM) Est GFR (CKD-EPI)NonAf (>60 ml/min/1.73 sqM) Glucose (74-99) mg/dL Plasma Lactic Acid [place] 2.2 H* (0.7-2.0) mmol/L Calcium (8.4-10.2) mg/dL Magnesium (1.6-2.3) mg/dL Total Bilirubin (0.2-1.3) mg/dL AST (14-36) U/L ALT (9-52) U/L Alkaline Phosphatase (38-126) U/L Troponin I <0.012 (0.000-0.034) ng/mL NT-Pro-B Natriuret Pep pg/mL Total Protein (6.3-8.2) g/dL Albumin (3.5-5.0) g/dL Influenza Type A RNA Not Detected (Not Detectd) Influenza Type B (PCR) Not Detected (Not Detectd) 08/11/18 Range/Units 11:37 WBC (3.8-10.6) k/uL RBC (3.80-5.40) m/uL Hgb (11.4-16.0) gm/dL Hct (34.0-46.0) % MCV (80.0-100.0) fL MCH (25.0-35.0) pg MCHC (31.0-37.0) g/dL RDW (11.5-15.5) % Plt Count (150-450) k/uL Neutrophils % % Lymphocytes % % Monocytes % % Eosinophils % % Basophils % % Neutrophils # (1.3-7.7) k/uL Lymphocytes # (1.0-4.8) k/uL Monocytes # (0-1.0) k/uL Eosinophils # (0-0.7) k/uL Basophils # (0-0.2) k/uL PT (9.0-12.0) sec INR (<1.2) APTT (22.0-30.0) sec Sodium (137-145) mmol/L Potassium (3.5-5.1) mmol/L Chloride (98-107) mmol/L Carbon Dioxide (22-30) mmol/L Anion Gap mmol/L BUN (7-17) mg/dL Creatinine (0.52-1.04) mg/dL Est GFR (CKD-EPI)AfAm (>60 ml/min/1.73 sqM) Est GFR (CKD-EPI)NonAf (>60 ml/min/1.73 sqM) Glucose (74-99) mg/dL Plasma Lactic Acid [place] (0.7-2.0) mmol/L Calcium (8.4-10.2) mg/dL Magnesium (1.6-2.3) mg/dL Total Bilirubin (0.2-1.3) mg/dL AST (14-36) U/L ALT (9-52) U/L Alkaline Phosphatase (38-126) U/L Troponin I (0.000-0.034) ng/mL NT-Pro-B Natriuret Pep 260 pg/mL Total Protein (6.3-8.2) g/dL Albumin (3.5-5.0) g/dL Influenza Type A RNA (Not Detectd) Influenza Type B (PCR) (Not Detectd) Disposition Clinical Impression: Bronchitis Disposition: HOME SELF-CARE Condition: Fair Instructions (If sedation given, give patient instructions): Acute Bronchitis (ED) Prescriptions: methylPREDNISolone Dose Pack [Medrol Dose Pack] 4 mg PO DIRECTED #21 package Azithromycin [Zithromax Z-pack] 0 mg PO DIRECTED #6 tab Is patient prescribed a controlled substance at d/c from ED?: No Referrals: None,Stated [Primary Care Provider] - 1-2 days Paola De Jesus MD [REFERRING] - 1-2 days Time of Disposition: 13:16
[2018-08-11 12:00] LABS: Basophils # (A) 0.1 k/uL (0-0.2); Basophils % (A) 1 %; Eosinophils # (A) 0.1 k/uL (0-0.7); Eosinophils % (A) 1 %; HCT 46.6 % (34.0-46.0); HGB 14.8 gm/dL (11.4-16.0); Lymphocytes # (A) 2.3 k/uL (1.0-4.8); Lymphocytes % (A) 21 %; MCH 27.8 pg (25.0-35.0); MCHC 31.8 g/dL (31.0-37.0); MCV 87.6 fL (80.0-100.0); Mean Platelet Volume 7.2; Monocytes # (A) 0.5 k/uL (0-1.0); Monocytes % (A) 5 %; Neutrophils # (A) 7.7 k/uL (1.3-7.7); Neutrophils % (A) 71 %; Platelet Count 261 k/uL (150-450); RBC 5.32 m/uL (3.80-5.40); RDW 15.1 % (11.5-15.5); WBC 10.8 k/uL (3.8-10.6)
[2018-08-11 12:06] LABS: Albumin 3.7 g/dL (3.5-5.0); Calcium 9.9 mg/dL (8.4-10.2); Potassium 3.2 mmol/L (3.5-5.1); Total Bilirubin 0.3 mg/dL (0.2-1.3); Total Protein 6.1 g/dL (6.3-8.2)
[2018-08-11 12:29] LABS: INR 0.9 (<1.2); Prothrombin Time 9.6 sec (9.0-12.0)
[2018-08-11 12:33] LABS: Partial Thromboplastin Time 19.5 sec (22.0-30.0)
[2018-08-11] MEDS ORDERED: SODIUM CHLORIDE 0.9% 500 ML 500 ML IV ONE (12:42)
--- NOTE | 2018-08-11 12:49 | XR ---
EXAMINATION TYPE: XR chest 2V DATE OF EXAM: 08/11/2018 COMPARISON: 02/20/2018 HISTORY: Shortness of breath TECHNIQUE: Frontal and lateral views of the chest are obtained. FINDINGS: Scattered senescent parenchymal changes noted. Hyperinflation compatible with COPD. No evidence for infiltrate. No evidence for atelectasis. Heart size is stable. Mediastinal structures are stable and grossly unremarkable. No evidence for hilar prominence. Degenerative changes dorsal spine. IMPRESSION: 1. No evidence for acute pulmonary disease.
[2018-08-11] MEDS ORDERED: POTASSIUM CHLORIDE ER 20 MEQ TAB.ER PO STA ×2 (13:08→13:20)
[2018-08-11 13:36] VITALS: BP 124/78; PULSE 104; RESP 18; TEMP 98.1
== END 2018-08-11 13:36 | disposition home or self-care (01) ==
LOC: EC 10:46
DX: J40 Bronchitis, not specified as acute or chronic (principal); D72.829 Elevated white blood cell count, unspecified; R00.0 Tachycardia, unspecified; Z53.20 Procedure and treatment not carried out because of patient's decision for unspecified reasons
CPT/HCPCS: 36415; 94640; 83880; 80053; 83605; 83735; 84484; 85025; 85610; 85730; 87040; 87502; 71046; 99285; 96374; J2930

== ENCOUNTER 2019-12-20 18:45 | Emergency (ER) | payer OTHER ==
[2019-12-20 19:00] VITALS: BP 135/85; PULSE 78; RESP 18; TEMP 98.3
[2019-12-20] MEDS ORDERED: HYDROCORTISONE 1% CREAM 30 GM TUBE TOPICAL STA (19:33)
--- NOTE | 2019-12-20 19:35 | ED ---
Skin/Abscess/FB HPI - General Source: patient Mode of arrival: ambulatory Limitations: no limitations <Corazon Allen - Last Filed: 12/20/19 19:49> <Jeri Blair - Last Filed: 12/21/19 18:15> - General Chief complaint: Skin/Abscess/Foreign Body Stated complaint: Arm pain Time Seen by Provider: 12/20/19 19:27 - History of Present Illness Initial comments: 59-year-old female patient presents to the emergency department today for evaluation of lesions to her left antecubital region. Patient states that a co uple days ago she noticed area of redness with bumps to the left antecubital region. Patient states that today she noticed that the areas look black or reddened and she is concerned. She denies any pain or itching to the area. Denies fever or chills. Denies difficulty with range of motion of the arm. Denies any new exposures such as soaps, lotions, creams, foods, detergents, or new clothing. Patient denies any recent cough, shortness of breath, chest pain, abdominal pain, nausea, vomiting, diarrhea, constipation, back pain, numbness, tingling, dizziness, weakness, hematuria, dysuria, urinary urgency, urinary frequency, headache, visual changes, or any other complaints. (Corazon Allen) - Related Data Home Medications Medication Instructions Recorded Confirmed Albuterol Inhaler (Mhu) [Ventolin 1 - 2 puff INHALATION RT-Q6H PRN 08/11/18 08/11/18 Hfa Inhaler] Previous Rx's Medication Instructions Recorded Azithromycin [Zithromax Z-pack] 0 mg PO DIRECTED #6 tab 08/11/18 methylPREDNISolone Dose Pack 4 mg PO DIRECTED #21 package 08/11/18 [Medrol Dose Pack] Allergies Allergy/AdvReac Type Severity Reaction Status Date / Time No Known Allergies Allergy Verified 12/20/19 18:57 Review of Systems ROS Other: All systems not noted in ROS Statement are negative. <Corazon Allen - Last Filed: 12/20/19 19:49> ROS Other: All systems not noted in ROS Statement are negative. <Jeri Blair - Last Filed: 12/21/19 18:15> ROS Statement: Those systems with pertinent positive or pertinent negative responses have been documented in the HPI. Past Medical History Past Medical History: No Reported History History of Any Multi-Drug Resistant Organisms: None Reported Past Surgical History: Section Past Psychological History: No Psychological Hx Reported Smoking Status: Former smoker Past Alcohol Use History: None Reported Past Drug Use History: None Reported <Corazon Allen - Last Filed: 12/20/19 19:49> General Exam Limitations: no limitations General appearance: alert, in no apparent distress, other (This is a well-de veloped, well-nourished adult female patient in no acute distress. Vital signs upon presentation are temperature 98.3F, pulse 78, respirations 18, blood pressure 135/85, pulse ox 99% on room air.) Eye exam: Present: normal appearance, PERRL, EOMI. Absent: scleral icterus, conjunctival injection, periorbital swelling Respiratory exam: Present: normal lung sounds bilaterally. Absent: respiratory distress, wheezes, rales, rhonchi, stridor Cardiovascular Exam: Present: regular rate, normal rhythm, normal heart sounds. Absent: systolic murmur, diastolic murmur, rubs, gallop, clicks Extremities exam: Present: full ROM, normal capillary refill, other (There is an area over the left antecubital region medially appears to be 3-4 scabbed papules, very mild surrounding erythema. No vesicular lesions, no drainage. No tenderness.). Absent: normal inspection, tenderness, pedal edema, joint swe lling, calf tenderness Neurological exam: Present: alert, oriented X3, CN II-XII intact Psychiatric exam: Present: normal affect, normal mood Skin exam: Present: warm, dry, intact, normal color. Absent: rash <Corazon Allen - Last Filed: 12/20/19 19:49> Course Vital Signs 12/20/19 18:57 Temperature 98.3 F Pulse Rate 78 Respiratory 18 Rate Blood Pressure 135/85 O2 Sat by Pulse 99 Oximetry Medical Decision Making <Corazon Allen - Last Filed: 12/20/19 19:49> <Jeri Blair - Last Filed: 12/21/19 18:15> - Medical Decision Making 59-year-old female patient presents to the emergency department today for evaluation of lesions over the left antecubital region. Physical examination reveals 3-4 papules that are scabbed over the left antecubital region. It is very mild surrounding erythema but no evidence for infection or warmth. This is consistent with contact dermatitis. We'll give her hydrocortisone cream. She is instructed follow with her primary care physician for recheck in 1-2 days. Return parameters discussed in detail. She verbalizes understanding and agrees with this plan. (Corazon Allen) I was available for consultation in the emergency department. The history and physical exam were done by the midlevel provider. I was consulted for this patients care. I reviewed the case with the midlevel provider and based on their presentation of the patient, I agree with the assessment, medical decision making and plan of care as documented. Chart was dictated using [employer] dictation software. Attempts were made to correct any dictation errors however some typographical errors may persist. Patient was seen during a national state of emergency due to the Covid-19 pandemic. (Jeri Blair) Disposition Is patient prescribed a controlled substance at d/c from ED?: No Time of Disposition: 19:35 <Corazon Allen - Last Filed: 12/20/19 19:49> <Jeri Blair - Last Filed: 12/21/19 18:15> Clinical Impression: Contact dermatitis Disposition: HOME SELF-CARE Condition: Good Instructions (If sedation given, give patient instructions): Contact Dermatitis (ED) Additional Instructions: Use hydrocortisone cream twice daily. Primary care physician for recheck in 1-2 days. Return to the emergency department immediately for any new, worsening, or concerning symptoms. Referrals: None,Stated [Primary Care Provider] - 1-2 days
== END 2019-12-20 19:54 | disposition home or self-care (01) ==
LOC: EC 18:45
DX: L25.9 Unspecified contact dermatitis, unspecified cause (principal); Z87.891 Personal history of nicotine dependence
CPT/HCPCS: 99283

== ENCOUNTER 2020-01-15 17:14 | Emergency (ER) | payer OTHER ==
[2020-01-15 17:47] VITALS: BP 120/81; PULSE 95; RESP 18; TEMP 98.1
--- NOTE | 2020-01-15 19:13 | ED ---
Lower Extremity Injury HPI - General Chief Complaint: Extremity Injury, Lower Stated Complaint: Toe Injury Time Seen by Provider: 01/15/20 19:03 Source: patient, RN notes reviewed, old records reviewed Mode of arrival: ambulatory Limitations: no limitations - History of Present Illness Initial Comments: 51-year-old female presents today with complaints of bilateral lower chest first toenail pain. She reports that she believes that her left foot toenail is close to falling off. Patient states that she has not seen a primary care doctor or order checker. - Related Data Home Medications Medication Instructions Recorded Confirmed Albuterol Inhaler (Mhu) [Ventolin 1 - 2 puff INHALATION RT-Q6H PRN 08/11/18 08/11/18 Hfa Inhaler] Previous Rx's Medication Instructions Recorded Azithromycin [Zithromax Z-pack] 0 mg PO DIRECTED #6 tab 08/11/18 methylPREDNISolone Dose Pack 4 mg PO DIRECTED #21 package 08/11/18 [Medrol Dose Pack] Allergies Allergy/AdvReac Type Severity Reaction Status Date / Time No Known Allergies Allergy Verified 01/15/20 17:43 Review of Systems ROS Statement: Those systems with pertinent positive or pertinent negative responses have been documented in the HPI. ROS Other: All systems not noted in ROS Statement are negative. Past Medical History Past Medical History: No Reported History History of Any Multi-Drug Resistant Organisms: None Reported Past Surgical History: Section Past Psychological History: No Psychological Hx Reported Smoking Status: Former smoker Past Alcohol Use History: None Reported Past Drug Use History: None Reported General Exam - General Exam Comments Initial Comments: 59-year-old female. No distress. Limitations: no limitations General appearance: alert, in no apparent distress Head exam: Present: atraumatic, normocephalic, normal inspection Eye exam: Present: normal appearance, PERRL, EOMI. Absent: scleral icterus, conjunctival injection, periorbital swelling ENT exam: Present: normal exam, mucous membranes moist Neck exam: Present: normal inspection. Absent: tenderness, meningismus, lymphadenopathy Respiratory exam: Present: normal lung sounds bilaterally. Absent: respiratory distress, wheezes, rales, rhonchi, stridor Cardiovascular Exam: Present: regular rate, normal rhythm, normal heart sounds. Absent: systolic murmur, diastolic murmur, rubs, gallop, clicks GI/Abdominal exam: Present: soft Extremities exam: Present: normal inspection, full ROM, normal capillary refill, other (Patient has bilateral onychomycosis and toes. The left great toenail is 90% avulsed at this time.). Absent: tenderness, pedal edema, joint swelling, calf tenderness Back exam: Present: normal inspection Psychiatric exam: Present: normal affect, normal mood Skin exam: Present: warm, dry, intact, normal color. Absent: rash Course Vital Signs 01/15/20 17:43 Temperature 98.1 F Pulse Rate 95 Respiratory 18 Rate Blood Pressure 120/81 O2 Sat by Pulse 99 Oximetry Medical Decision Making - Medical Decision Making 59-year-old female presents emergency department today for concern of bilateral toenail irritation. Patient is evidence of onychomycosis. I examine the left to toenail is partially avulsed and only hanging on by 10% of the nailbed. This was easily removed with pulling with forceps. No bleeding was noted. Patient advised to follow-up with podiatry. The right great toenail still intact. Patient given referral for PCP and podiatry. Disposition Clinical Impression: Toenail fungus, Toenail avulsion Disposition: HOME SELF-CARE Condition: Good Instructions (If sedation given, give patient instructions): Nail Avulsion (ED) Additional Instructions: Follow-up with a primary care physician and a order checker for further treatment. There is any signs of redness swelling or drainage return to the ER for reevaluation. Is patient prescribed a controlled substance at d/c from ED?: No Referrals: None,Stated [Primary Care Provider] - 1-2 days Paola De Jesus MD [REFERRING] - 1-2 days Smooth Pearce DPM [STAFF PHYSICIAN] - 1-2 days Time of Disposition: 19:13
== END 2020-01-15 19:21 | disposition home or self-care (01) ==
LOC: EC 17:14
DX: S91.202A Unspecified open wound of left great toe with damage to nail, initial encounter (principal); B35.1 Tinea unguium; Z87.891 Personal history of nicotine dependence; X58.XXXA Exposure to other specified factors, initial encounter
CPT/HCPCS: 11730; 99283

== ENCOUNTER 2022-01-20 11:33 | Emergency (ER) | payer OTHER ==
[2022-01-20 11:57] VITALS: RESP 16
--- NOTE | 2022-01-20 12:00 | XR ---
EXAMINATION TYPE: XR chest 2V DATE OF EXAM: 01/20/2022 11:55 AM COMPARISON: Chest radiographs from 08/11/2018. TECHNIQUE: XR chest 2V Frontal and lateral views of the chest. CLINICAL INDICATION:Female, 61 years old with history of cough congestion; FINDINGS: Lungs/Pleura: There is no evidence of pleural effusion, focal consolidation, or pneumothorax. Scatter ed senescent parenchyma changes. Pulmonary vascularity: Unremarkable. Heart/mediastinum: Cardiomediastinal silhouette is unremarkable. Musculoskeletal: No acute osseous pathology. IMPRESSION: No acute cardiopulmonary disease/process. No significant change from prior examination.
--- NOTE | 2022-01-20 14:33 | ED ---
URI HPI - General Chief Complaint: Upper Respiratory Infection Stated Complaint: chest tightness Time Seen by Provider: 01/20/22 13:02 Source: patient, family, RN notes reviewed Mode of arrival: ambulatory Limitations: no limitations - History of Present Illness Initial Comments: This is a 61-year-old female who presents to the emergency department for c oughing and congestion. States that the symptoms started this morning. Denies any chest pain or difficulty breathing. For some reason, the patient's triage information states that she tested positive for strep throat at [facility], however the patient denies this. She is also denying the chest tightness that is listed. States that the primary issue is the coughing. This is a productive cough. Denies any history of respiratory illnesses such as COPD or asthma. Also denies any sick contacts. Denies any fevers, chills, sore throat, dyspnea, chest pain, palpitations, abdominal pain, nausea, vomiting, diarrhea, back pain, or headaches. MD Complaint: cough - Related Data Previous Rx's Medication Instructions Recorded Albuterol Sulfate [Albuterol 1 puff PO Q4-6H PRN #8.5 gm 01/20/22 Sulfate Hfa] Promethazine/Dextromethorphan 4 ml PO Q4H PRN #473 ml 01/20/22 [Promethazine-Dm Syrup] predniSONE 50 mg PO Q24H 5 Days #5 tablet 01/20/22 Allergies Allergy/AdvReac Type Severity Reaction Status Date / Time No Known Allergies Allergy Verified 01/20/22 14:42 Review of Systems ROS Statement: Those systems with pertinent positive or pertinent negative responses have been documented in the HPI. ROS Other: All systems not noted in ROS Statement are negative. Past Medical History Past Medical History: No Reported History History of Any Multi-Drug Resistant Organisms: None Reported Past Surgical History: Section Past Psychological History: No Psychological Hx Reported Smoking Status: Former smoker Past Alcohol Use History: None Reported Past Drug Use History: None Reported General Exam Limitations: no limitations General appearance: alert, in no apparent distress Head exam: Present: atraumatic, normocephalic, normal inspection Respiratory exam: Present: other (Course breath sounds bilaterally) Cardiovascular Exam: Present: regular rate, normal rhythm, normal heart sounds. Absent: systolic murmur, diastolic murmur, rubs, gallop, clicks Neurological exam: Present: alert, oriented X3, CN II-XII intact Psychiatric exam: Present: normal affect, normal mood Skin exam: Present: warm, dry, intact, normal color. Absent: rash Course Vital Signs 01/20/22 01/20/22 01/20/22 11:37 11:53 15:04 Temperature 97.6 F 97.7 F 98 F Pulse Rate 100 64 78 Respiratory 20 16 16 Rate Blood Pressure 134/91 136/78 128/70 O2 Sat by Pulse 99 99 98 Oximetry Medical Decision Making - Medical Decision Making This is a 61-year-old female who presents to the emergency department with coughing and congestion. Chest x-ray reveals no acute cardiopulmonary process. COVID and influenza testing are negative. Advised the patient that she likely has a viral infection. Prescription for 5 day course of prednisone provided as well as a Ventolin inhaler to use as needed for coughing and if she has any difficulty breathing. She was also given a prescription for promethazine DM cough syrup. Advised she take the first dose at night until she knows how it affects her, as it may be sedating. She can alternate with Tylenol and ibuprofen as needed for any fevers or discomfort. Advised to consider being retested for COVID if symptoms persist, in the event it is too early for her to test positive. Return precautions reviewed in depth, the patient is instructed to return to the emergency department with any new, worsening, or concerning symptoms. Patient verbalized understanding. This case was discussed in detail with the attending ED physician. Presentation, findings, and treatment plan discussed in detail as well. - Lab Data Lab Results 01/20/22 01/20/22 Range/Units 13:31 13:31 Coronavirus (PCR) Not Detected (Not Detectd) Influenza Type A RNA Not Detected (Not Detectd) Influenza Type B (PCR) Not Detected (Not Detectd) - Radiology Data Radiology results: report reviewed, image reviewed Disposition Clinical Impression: Bronchitis Disposition: HOME SELF-CARE Instructions (If sedation given, give patient instructions): Upper Respiratory Infection (ED), Acute Bronchitis (ED) Additional Instructions: Return to the emergency department with any new, worsening, or concerning symptoms. Take the prednisone daily for 5 days. The cough syrup can be used every 4-6 hours as needed, take the first dose at night until you know how it affects you, as it may be sedating. The inhaler can be used as needed for coughing and shortness of breath. Follow up with your primary care provider in 1-2 days. Prescriptions: Albuterol Sulfate [Albuterol Sulfate Hfa] 1 puff PO Q4-6H PRN #8.5 gm PRN Reason: Shortness Of Breath predniSONE 50 mg PO Q24H 5 Days #5 tablet Promethazine/Dextromethorphan [Promethazine-Dm Syrup] 4 ml PO Q4H PRN #473 ml PRN Reason: Cough Is patient prescribed a controlled substance at d/c from ED?: No Referrals: None,Stated [Primary Care Provider] - 1-2 days
[2022-01-20 15:06] VITALS: BP 128/70; PULSE 78; TEMP 98
== END 2022-01-20 15:04 | disposition home or self-care (01) ==
LOC: EC 11:33
DX: J40 Bronchitis, not specified as acute or chronic (principal); Z87.891 Personal history of nicotine dependence; Z79.899 Other long term (current) drug therapy; Z20.822 Contact with and (suspected) exposure to COVID-19
CPT/HCPCS: 71046; 87502; 87635; 99285

== ENCOUNTER 2023-10-31 09:57 | Emergency (ER) | payer OTHER ==
[2023-10-31 10:06] VITALS: RESP 18
--- NOTE | 2023-10-31 10:24 | ED ---
Lower Extremity Injury HPI - General Chief Complaint: Extremity Injury, Lower Stated Complaint: knee swelling Time Seen by Provider: 10/31/23 10:20 Source: patient, RN notes reviewed Mode of arrival: ambulatory Limitations: no limitations - History of Present Illness Initial Comments: 63-year-old female presenting with left knee swelling x 1 week. States last Tuesday she began to notice the upper portion of her anterior left knee was swollen. Denies trauma or injury. States she is active and stands most of the day. Denies any knee pain. There is no pain with weightbearing. Denies calf pain or swelling. Denies numbness, tingling, or warmth. Denies pain or swelling behind the knee. She has never had this before. Denies history of DVT. - Related Data Previous Rx's Medication Instructions Recorded Albuterol Sulfate [Albuterol 1 puff PO Q4-6H PRN #8.5 gm 01/20/22 Sulfate Hfa] Promethazine/Dextromethorphan 4 ml PO Q4H PRN #473 ml 01/20/22 [Promethazine-Dm Syrup] predniSONE 50 mg PO Q24H 5 Days #5 tablet 01/20/22 Allergies Allergy/AdvReac Type Severity Reaction Status Date / Time No Known Allergies Allergy Verified 10/31/23 10:06 Review of Systems ROS Statement: Those systems with pertinent positive or pertinent negative responses have been documented in the HPI. ROS Other: All systems not noted in ROS Statement are negative. Past Medical History Past Medical History: No Reported History History of Any Multi-Drug Resistant Organisms: None Reported Past Surgical History: Section Past Psychological History: No Psychological Hx Reported Smoking Status: Former smoker Past Alcohol Use History: None Reported Past Drug Use History: None Reported General Exam Limitations: no limitations General appearance: alert, in no apparent distress Head exam: Present: atraumatic, normocephalic, normal inspection Respiratory exam: Present: normal lung sounds bilaterally. Absent: respiratory distress, wheezes, rales, rhonchi, stridor Cardiovascular Exam: Present: regular rate, normal rhythm, normal heart sounds. Absent: systolic murmur, diastolic murmur, rubs, gallop, clicks Left Upper Leg exam: Present: normal inspection, full ROM. Absent: tenderness, swelling Knee exam: Present: normal inspection, full ROM. Absent: tenderness, swelling (Mild edema located superior to left ventral knee. No palpable mass, fluctuance, warmth, redness. No tenderness to palpation. No pain, warmth, edema in popliteal space) Lower Leg exam: Present: normal inspection, full ROM. Absent: tenderness, swelling Ankle exam: Present: normal inspection, full ROM. Absent: tenderness, swelling Foot/Toe exam: Present: normal inspection, full ROM. Absent: tenderness, swelling Neurovascular tendon exam: Present: no vascular compromise. Absent: pulse deficit, abnormal cap refill, motor deficit, sensory deficit Back exam: Present: normal inspection Neurological exam: Present: alert, oriented X3 Psychiatric exam: Present: normal affect, normal mood Skin exam: Present: warm, dry, intact, normal color. Absent: rash Course Vital Signs 10/31/23 10:03 Temperature 97.4 F L Pulse Rate 78 Respiratory 18 Rate Blood Pressure 142/86 O2 Sat by Pulse 96 Oximetry Medical Decision Making - Medical Decision Making Was pt. sent in by a medical professional or institution (, PA, HEALTH ECONOMIST, urgent care, hospital, or correction...) When possible be specific @ -No Did you speak to anyone other than the patient for history (EMS, parent, family, police, friend...)? What history was obtained from this source @ -No Did you review nursing and triage notes (agree or disagree)? Why? @ -I reviewed and agree with nursing and triage notes Were old charts reviewed (outside hosp., previous admission, EMS record, old EKG, old radiological studies, urgent care reports/EKG's, correction records)? Report findings @ -No old charts were reviewed Differential Diagnosis (chest pain, altered mental status, abdominal pain women, abdominal pain men, vaginal bleeding, weakness, fever, dyspnea, syncope, headache, dizziness, GI bleed, back pain, seizure, CVA, palpatations, mental health, musculoskeletal)? @ -Differential Musculoskeletal Muscular strain, contusion, ligament sprain, fracture, arthritis, septic arthritis, bursitis, cellulitis, muscle spasm, nerve compression, DVT, arterial occlusion, herpes zoster, electrolyte abnormality, tumor.... This is not meant to be in all inclusive list EKG interpreted by me (3pts min.). @ -None X-rays interpreted by me (1pt min.). @ -X-ray of left knee reveals no acute fracture or dislocation CT interpreted by me (1pt min.). @ -None done U/S interpreted by me (1pt. min.). @ -None done What testing was considered but not performed or refused? (CT, X-rays, U/S, labs)? Why? @ -None What meds were considered but not given or refused? Why? @ -None Did you discuss the management of the patient with other professionals (professionals i.e. Dr., PA, HEALTH ECONOMIST, lab, RT, psych nurse, social work coordinator, band director, teacher, chief contract officer, director case)? Give summary @ -No Was smoking cessation discussed for >3mins.? @ -No Was critical care preformed (if so, how long)? @ -No Were there social determinants of health that impacted care today? How? (Homelessness, low income, unemployed, alcoholism, drug addiction, transportation, low edu. Level, literacy, decrease access to med. care, care home, rehab)? @ -No Was there de-escalation of care discussed even if they declined (Discuss DNR or withdrawal of care, Hospice)? DNR status @ -No What co-morbidities impacted this encounter? (DM, HTN, Smoking, COPD, CAD, Cancer, CVA, ARF, Chemo, Hep., AIDS, mental health diagnosis, sleep apnea, morbid obesity)? @ -None Was patient admitted / discharged? Hospital course, mention meds given and route, prescriptions, significant lab abnormalities, going to OR and other pertinent info. @ -Patient was discharged. Patient was seen and evaluated for left knee swelling x 1 week. No red flag symptoms. No sign of bacterial infection. Patient is neurovascularly intact with no pain and full range of motion. No popliteal pain or swelling. X-ray reveals no acute fracture or dislocation. Discussed there is no sign of emergent etiology causing symptoms upon evaluation today. Advised follow-up with PCP if symptoms persist. Supportive care discussed. Return parameters discussed and patient is agreeable to plan. Case was discussed with my ED attending Dr. Maguire. Patient discharged in stable condition. Undiagnosed new problem with uncertain prognosis? @ -No Drug Therapy requiring intensive monitoring for toxicity (Heparin, Nitro, Insulin, Cardizem)? @ -No Were any procedures done? @ -No Diagnosis/symptom? @ -Left knee swelling Acute, or Chronic, or Acute on Chronic? @ -Acute Uncomplicated (without systemic symptoms) or Complicated (systemic symptoms)? @ -Uncomplicated Side effects of treatment? @ -No Exacerbation, Progression, or Severe Exacerbation? @ -No Poses a threat to life or bodily function? How? (Chest pain, USA, MD, pneumonia, PE, COPD, DKA, ARF, appy, cholecystitis, CVA, Diverticulitis, Homicidal, Suicidal, threat to staff... and all critical care pts) @ -No Disposition Clinical Impression: Left knee sprain Disposition: HOME SELF-CARE Condition: Stable Instructions (If sedation given, give patient instructions): Knee Sprain (ED) Additional Instructions: Ice and elevate the knee. Please return to the Emergency Department if symptoms worsen or any other concerns. Is patient prescribed a controlled substance at d/c from ED?: No Referrals: None,Stated [Primary Care Provider] - 1-2 days Time of Disposition: 12:54
--- NOTE | 2023-10-31 11:03 | XR ---
EXAMINATION TYPE: XR knee complete LT DATE OF EXAM: 10/31/2023 CLINICAL HISTORY: pain TECHNIQUE: Three views of the left knee are obtained. COMPARISON: None. FINDINGS: There is no acute fracture/dislocation. The tri-compartment joint spaces appear within no rmal limits. The overlying soft tissue appears unremarkable. IMPRESSION: There is no acute fracture or dislocation ICD 10 NO FRACTURE, INITIAL EVALUATION
[2023-10-31 13:02] VITALS: BP 136/80; PULSE 72; TEMP 97.9
== END 2023-10-31 13:15 | disposition home or self-care (01) ==
LOC: EC 09:57
DX: S83.92XA Sprain of unspecified site of left knee, initial encounter (principal); Z87.891 Personal history of nicotine dependence; X58.XXXA Exposure to other specified factors, initial encounter
CPT/HCPCS: 99283